=== PATIENT | female | born 1935 | race Caucasian/White ===

== ENCOUNTER 2016-09-04 12:54 | Emergency (ER) | payer MEDICARE ==
[~2016-09-04] VITALS: Ht 167.6 cm; Wt 63.6 kg
[~2016-09-04 12:54] MED LIST: AMLO10TA3 PO; ASPI81TA3 PO; ATOR20TA65 PO; BUSP10TA2 PO; CYCL10TA9 PO; DULO30CA50 PO; L.AC1CAP6 PO; LORA0.5T PO; MIRT15TA6 PO; NITR100 PO; ONDA-53 PO; OXYC1TAB24 PO; POLY17PO6 PO; PREG150C PO; [UNRECOGNIZED DRUG - CODE] PO
[2016-09-04 12:59] VITALS: BP 144/88; PULSE 89; RESP 20; O2SAT 93
[2016-09-04 13:30] LABS: BASOPHILS % (AUTO) 0.2 % (0-3); EOSINOPHILS % (AUTO) 4.8 % (0-5); MONOCYTES % (AUTO) 12.8 % (4-12); Mean Corpuscular Hemoglobin 31.2 pg (27.0-35.0); Mean Corpuscular Volume 96.1 fL (81-100); NEUTROPHILS % (AUTO) 47.3 % (40-74); Platelet Count 320 bil/L (150-400)
--- NOTE | 2016-09-04 13:54 | DRSVH ---
PROCEDURE: X-RAY CHEST ONE VIEW, PORTABLE ([id number]) INDICATIONS: 80 year-old female with chest pain. TECHNIQUE: One view of the chest was acquired. COMPARISON: [facility], CR, XR CHEST 1VW (PORTABLE), 07/18/2016, 20:19. [facility], CR, XR CHEST 1VW (PORTABLE), 06/17/2016, 1:30. [facility], CR, XR CHEST 1VW (PO RTABLE), 03/18/2016, 10:09. FINDINGS: Surgical changes and devices: Left proximal humeral fracture fixation hardware is again noted. Lungs and pleura: No pleural effusions or pneumothorax. Lungs are clear. Mediastinum: Mediastinal contours appear normal. Heart size is normal. There is aortic atheroscler osis. Bones and chest wall: No suspicious bony lesions. Overlying soft tissues appear unremarkable. IMPRESSION: No acute cardiopulmonary disease. Dictated by: Roni Coronado M.D. on 09/04/2016 at 13:52 Approved by: Roni Coronado M.D. on 09/04/2016 at 13:52
--- NOTE | 2016-09-04 14:00 | ED.REPORT ---
HPI-Chest Pain 40 and Over Date of Service Sep 04, 2016 ED Provider: Dhaval Cam MD Beronica Perea" is a very pleasant 80-year-old female with past medical history of hypertension, anxiety, sleep apnea and fibromyalgia presents to the ED secondary to chest pain 3 hours. Patient states that she recently went to urgent care on Sunday (2 days ago) and was diagnosed with influenza via nasal swab, prescribed antibiotics and cough suppressants and sent home. She states that she still maintains a productive cough yellow sputum and difficulty breathing and shortness of breath chills and fever at home. Her chest pain is located upper sternal area spanning from left to right midclavicular lines. This pain is reported to be sharp in nature and increases with deep inspiration and palpation. She endorses nausea but no vomiting, denies headache denies visual changes. Nursing Notes Stated Complaint: POSS FLU Chief Complaint: Chest Pain Nursing Notes Reviewed: Yes Allergies: Coded Allergies: No Known Allergies (Unverified , 03/18/16) Scheduled Amlodipine (Amlodipine) 10 Mg Tablet 10 MG PO DAILY Aspirin Chew (Aspirin Chew) 81 Mg Chew 81 MG PO DAILY Atorvastatin Calcium (Atorvastatin Calcium) 20 Mg Tablet 40 MG PO HS Buspirone (Buspirone) 10 Mg Tablet 10 MG PO BID Duloxetine (Duloxetine) 30 Mg Capsule.dr 30 MG PO DAILY L.acidoph & Paracasei,B.lactis (Probiotic) 10 Billion Cell Capsule 1 EACH PO DAILY Mirtazapine (Mirtazapine) 15 Mg Tablet 15 MG PO HS Nitrofurantoin Monohyd/M-Cryst (MacroBid) 100 Mg Capsule 100 MG PO BID Please take for one day in AM/PM on 03/13/2016 Pregabalin (Lyrica) 150 Mg Capsule 150 MG PO BID Scheduled PRN Cyclobenzaprine (Cyclobenzaprine) 10 Mg Tablet 10 MG PO TID PRN PRN Spasm Hyoscyamine Sulfate (Hyosyne) 0.125 Mg/1 Ml Drops 5 ML PO Q4H PRN PRN For GI Cramps Lorazepam (Lorazepam) 0.5 Mg Tablet 0.5 MG PO BID PRN PRN For Anxiety Ondansetron (Ondansetron) 4 Mg Tablet 4 MG PO TID PRN PRN For Nausea Polyethylene Glycol 3350 (Miralax) 17 Gm Powd.pack 17 GM PO DAILY PRN PRN For Constipation oxyCODONE-Acetaminophen 5-325 mg (oxyCODONE-Acetaminophen 5-325 mg) 1 Each Tablet 2 TAB PO TID PRN PRN For Pain General Time Seen by MD: 13:17 Chief Complaint Chest pain Hx Obtained From: Patient Arrived By: Walk-in Sudden in Onset?: No Past Medical History Past Medical History Fibromyalgia On chronic narcotics Reports: GERD, Hypertension, Transient ischemic attack Past Surgical History "Punctured bile duct" abscess requiring second surgery 30 years prior right knee replacement left shoulder replacement Reports: Appendectomy, Cholecystectomy Smoking History Never Smoker Social History Drug Use: Denies drug use Other Social History: Good social support, , Local resident Ambulatory Status Independent Review of Systems Constitutional: Reports: Chills, Fever Respiratory: Reports: Prod cough, yellow, Shortness of breath Cardiovascular: Reports: Chest pain, Denies: Palpitations, Syncope GI: Reports: Nausea, Denies: Abdominal pain, Constipation, Diarrhea, Vomiting Neurologic: Denies: Change LOC, Confusion, Dizziness, Headache, Lightheaded, Numbness Physical Exam General: No acute distress, well-developed, well-nourished, appropriately interactive HEENT: Normocephalic, atraumatic. External ears without defect. Pupils equal, round, and reactive to light and accommodation. Anicteric sclerae, moist conjunctivae, and no lid lag. Oropharynx free of erythema and cobble stoning with moist mucosa. Neck: Supple with full range of motion. No jugular venous distension. No lymphadenopathy or thyromegaly. Cardiovascular: Regular rate and rhythm with no murmurs, rubs, or gallops appreciated Pulmonary: Clear to auscultation bilaterally with no wheezes, or rhonchi. Normal respiratory effort with no use of accessory muscles. Slight right lower lobe crackles. Abdomen: Bowel tones present. Soft, nontender, nondistended. Extremities: No clubbing, cyanosis, edema, or lymphadenopathy appreciated. Skin: Normal temperature, turgor, and texture; no rash, ulcers, or subcutaneous nodules appreciated. Neurological: Cranial nerves grossly intact. Normal muscle strength, tone, and bulk. Reflexes, coordination, and sensory function within normal limits. No known gait impairment. Psychiatric: Normal mood and affect. Alert and oriented to person, place, and time. Initial Vital Signs Vital Signs (First) Date Time Temp Pulse Resp B/P Pulse Ox O2 Delivery O2 Flow Rate FiO2 09/04/16 12:59 36.1 89 20 144/88 93 Room Air Interpretation & Diagnostics Lab Results Interpretation Result Diagram: 09/04/16 1310 09/04/16 1310 Test 09/04/16 13:10 White Blood Count 4.4th/mm3 (3.8-10.1) Red Blood Count 4.39mil/mm3 (3.90-5.20) Hemoglobin 13.7g/dL (12.0-15.6) Hematocrit 42.2% (35.0-46.0) Mean Corpuscular Volume 96.1fL (81-100) Mean Corpuscular Hemoglobin 31.2pg (27.0-35.0) Mean Corpuscular Hemoglobin Concent 32.5% (32.0-37.0) Red Cell Distribution Width 13.7% (12.3-15.4) Platelet Count 320bil/L (150-400) Neutrophils (%) (Auto) 47.3% (40-74) Lymphocytes (%) (Auto) 34.9% (14-46) Monocytes (%) (Auto) 12.8% (4-12) Eosinophils (%) (Auto) 4.8% (0-5) Basophils (%) (Auto) 0.2% (0-3) Sodium Level 140mEq/L (134-144) Potassium Level 4.2mEq/L (3.5-5.2) Chloride Level 104mEq/L (97-108) Carbon Dioxide Level 22mmol/L (18-29) Blood Urea Nitrogen 14mg/dL (8-27) Creatinine 0.60mg/dL (0.57-1.00) Estimat Glomerular Filtration Rate 137mL/min (>59) Glucose Level 105mg/dL (60-99) Calcium Level 9.2mg/dL (8.5-10.1) Magnesium Level 1.9mg/dL (1.6-2.6) Total Bilirubin 0.2mg/dL (0.0-1.2) Aspartate Amino Transf (AST/SGOT) 17U/L (0-50) Alanine Aminotransferase (ALT/SGPT) 13U/L (0-32) Alkaline Phosphatase 71U/L (25-165) Troponin T < 0.010ug/L (0.0-0.011) Total Protein 7.4g/dL (6.4-8.4) Albumin 4.0g/dL (3.4-5.0) Hold Baxter Top Tube Received (Received) ECG Interpretation ECG Interpretation: EKG shows sinus rhythm with prolonged QT interval. Re-Eval/Medical Decision Med Decision/Clinical Course EKG showed sinus rhythm with QT prolongation. CBC CMP unremarkable. Chest x-ray also unremarkable. Patient is most likely suffering from costochondritis secondary to coughing episodes and sequelae of current respiratory infection. Seen in urgent care 3 days ago diagnosed with respiratory virus and given antibiotics. Patient counseled to continue taking supportive treatment and prescribed medication. Patient discharged to home in stable condition encouraged to follow-up with primary care provider. Counseled Regarding: Diagnosis, Lab results, When/why to return to ED Discharge & Departure Primary Impression: Musculoskeletal chest pain Disposition: Home Discharge Condition All VS Reviewed: Yes Condition: Stable Additional Instructions: Your chest pain is most likely due to a condition called costochondritis. This is brought on by your recent illness and subsequent coughing. Please continue to take the medications prescribed to you by the urgent care doctor. If your symptoms do not improve or worsen or if you develope fevers nausea vomiting, cough with blood or nausea vomiting please return to the ED for additional evaluation. Referrals: OTHER,PHYSICIAN (PCP) Attending Statement The patient was seen and examined together with Dr. Francis on 09/04/15 and I agree with the history, exam and plan as outlined in the note above. WILVER FRANCIS DO Sep 04, 2016 14:00 Dhaval Cam MD Sep 04, 2016 14:55
[2016-09-04 14:04] LABS: Magnesium 1.9 mg/dL (1.6-2.6)
[2016-09-04 14:06] LABS: TROPONIN T < 0.010 ug/L (0.0-0.011)
[2016-09-04 14:37] VITALS: BP 135/63; PULSE 77; RESP 13; O2SAT 100
== END 2016-09-04 14:15 | disposition home or self-care (01) ==
LOC: SED 12:54
DX: R07.89 Other chest pain (principal); K21.9 Gastro-esophageal reflux disease without esophagitis; I10 Essential (primary) hypertension; Z86.73 Personal history of transient ischemic attack (TIA), and cerebral infarction without residual deficits; Z79.82 Long term (current) use of aspirin

== ENCOUNTER 2016-09-16 17:46 | Observation (INO) | payer MEDICARE ==
[~2016-09-16] VITALS: Ht 165.1 cm; Wt 66.8 kg
[2016-09-16] VITALS (7 sets, daily range): BP systolic 149–176; BP diastolic 67–123; PULSE 81–93; RESP 10–20; O2SAT 94–98
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
[2016-09-16 18:54] LABS: BASOPHILS % (AUTO) 0.5 % (0-3); EOSINOPHILS % (AUTO) 3.9 % (0-5); MONOCYTES % (AUTO) 9.2 % (4-12); Mean Corpuscular Hemoglobin 31.3 pg (27.0-35.0); NEUTROPHILS % (AUTO) 53.3 % (40-74); Platelet Count 364 bil/L (150-400)
--- NOTE | 2016-09-16 19:13 | DRSVH ---
PROCEDURE: X-RAY CHEST ONE VIEW, PORTABLE ([id number]) INDICATIONS: chest pain TECHNIQUE: One view of the chest was acquired. COMPARISON: [facility], CT, CT ANGIO CHEST PE, 03/18/2016, 10:42. [facility] , CR, XR CHEST 1VW (PORTABLE), 03/10/2016, 11:54. [facility], CR, XR CHEST 1VW (PORTABLE) , 06/17/2016, 1:30. [facility], CR, XR CHEST 1VW (PORTABLE), 09/04/2016, 13:31. FINDINGS: Surgical changes and devices: There are postsurgical changes within the proximal left humerus again n oted. Lungs and pleura: There are small chronic bilateral pleural effusions redemonstrated. No acute cons olidation. Mediastinum: Mediastinal contours appear unchanged. Heart size is normal. Bones and chest wall: No suspicious bony lesions. Overlying soft tissues appear unremarkable. IMPRESSION: 1. Small chronic bilateral pleural effusions appear unchanged. No acute consolidation. Dictated by: Hernan Ramirez M.D. on 09/16/2016 at 19:12 Approved by: Hernan Ramirez M.D. on 09/16/2016 at 19:12
[2016-09-16] MEDS: fentaNYL-PF 50 mCg/mL 2 mL Inj IVPUSH PRN ×2 (19:15→19:35)
[2016-09-16 19:29] LABS: Magnesium 1.9 mg/dL (1.6-2.6)
[2016-09-16 19:31] LABS: TROPONIN T < 0.010 ug/L (0.0-0.011)
[2016-09-16] MEDS: HYDROmorphone 0.5 mg/0.5 mL iSecure Syringe IVPUSH PRN ×2 (20:39→20:54)
[2016-09-16] MEDS ORDERED: Alum-Mag Hydrox-Simeth 30 mL Suspension PO PRN (21:00)
[2016-09-16] MEDS ORDERED: Ondansetron 2 mg/mL 2 mL Inj IVPUSH PRN (21:00)
--- NOTE | 2016-09-16 22:26 | PCM.HPMED ---
Subjective Date of Service Sep 16, 2016 Primary Provider: Admitting Physician: Olaf Rosales MD Primary Care Physician: Other,Physician Attending Physician: Olaf Rosales MD Chief Complaint: Chest pain History of Present Illness: Patient is an 80-year-old female with hypertension, GERD, fibromyalgia, anxiety and depression presenting with left sided chest pain. The patient reports the onset of the chest pain about 2 weeks ago. Note the patient has previously been evaluated in the ED a couple of times and at Urgent Care a couple of times for chest pain. The patient was seen on 09/04/2016 in [facility] ED and at that time was diagnosed with costochondritis. She was also recently seen at Urgent Care on for the chest pain where she had an unremarkable EKG; the chest pain at that time was also attributed to costochondritis. Patient's reports the patient had onset of the chest pain this afternoon. She was given oxycodone, acetaminophen and Aleve without relief, which prompted her to be brought to [facility] ED for further evaluation. Patient reports the pain is located just left of her sternum and describes it as sharp, sore and constant. She does not recall an inciting event to the pain. Patient denies any pain with exertion, diaphoresis or radiation. In the ED, the patient received SL nitro, fentanyl IV 50mcg x2 and Dilaudid 0.5mg, which helped with the pain. Patient reports being "comfortable" at time of visit. The patient reports some constipation but otherwise denies shortness of breath, fever, chills, cough, nausea, emesis, lightheadedness, dizziness, dysuria, diarrhea. Patient's reports the patient had a pharmacological stress test at [facility] in July; however, she was unable to complete the study due to shoulder pain. In the ED, vitals: temp 36.4, HR 83, RR 18 satting 96% on room air, BP 149/123. Notable labs: Troponin<0.010, D-dimer <0.5. Chest x-ray shows small chronic bilateral pleural effusions that appear unchanged. Review of Systems: A comprehensive review of systems was conducted with the patient and found to be negative except as above in the History of Present Illness. Allergies Coded Allergies: No Known Allergies (Unverified , 03/18/16) Home Medications Amlodipine 10mg PO daily Buspirone 5mg PO daily Mirtazapine 15mg PO QHS Zofran 4mg PO daily Omeprazole 20mg PO BID Oxycodone 5mg PO QID PRN Probiotic PMH Fibromyalgia Hypertension Depression GERD Dementia History of TIA . Surgical History Right knee replacement Left shoulder replacement Appendectomy Cholecystectomy Tonsillectomy Family History Mother CVA in 80s Father unknown Social History Occupation: Retired Hx Alcohol Use: Yes (Sparingly) Hx Substance Use: No Hx Tobacco Use: No Smoking Status: Never Smoker Living Arrangement: with Family Exam Vital Signs Vital Sign - Last Date Time Temp Pulse Resp B/P Pulse Ox O2 Delivery O2 Flow Rate FiO2 09/16/16 20:18 83 18 149/123 96 Room Air 09/16/16 17:49 36.4 Exam General: Patient sitting upright in bed, No acute distress, well-developed, well -nourished, appropriately interactive HEENT: Normocephalic, atraumatic. External ears without defect. Pupils equal, round, and reactive to light. Anicteric sclerae, moist conjunctivae, and no lid lag. Oropharynx free of erythema and cobble stoning with moist mucosa. Neck: Supple. No lymphadenopathy or thyromegaly. Cardiovascular: Regular rate and rhythm with no murmurs, rubs, or gallops appreciated Pulmonary: Few crackles at bases otherwise no wheezes, or rhonchi. Normal respiratory effort with no use of accessory muscles. Abdomen: Bowel tones present. Soft, nontender, nondistended. Extremities: Mild lower extremity pitting edema above ankles. Musculoskeletal: Sternal tenderness to palpation Skin: Normal temperature, turgor, and texture; no rash, ulcers, or subcutaneous nodules appreciated. Neurological: Cranial nerves grossly intact. Psychiatric: Normal mood and affect. Lab and Diagnostics Result Diagram: 09/16/16183309/16/161833 X-Rays, CTs and MRIs Date of Service: 09/16/161834 PROCEDURE: X-RAY CHEST ONE VIEW, PORTABLE ([id number]) INDICATIONS: chest pain TECHNIQUE: One view of the chest was acquired. COMPARISON: [facility], CT, CT ANGIO CHEST PE, 03/18/2016, 10:42. [facility], CR, XR CHEST 1VW (PORTABLE), 03/10/2016, 11:54. [facility], CR, XR CHEST 1VW (PORTABLE), 06/17/2016, 1:30. [facility], CR, XR CHEST 1VW (PORTABLE), 09/04/2016, 13:31. FINDINGS: Surgical changes and devices: There are postsurgical changes within the proximal left humerus again noted. Lungs and pleura: There are small chronic bilateral pleural effusions redemonstrated. No acute consolidation. Mediastinum: Mediastinal contours appear unchanged. Heart size is normal. Bones and chest wall: No suspicious bony lesions. Overlying soft tissues appear unremarkable. IMPRESSION: 1. Small chronic bilateral pleural effusions appear unchanged. No acute consolidation. Dictated by: Hernan Ramirez M.D. on 09/16/2016 at 19:12 Approved by: Hernan Ramirez M.D. on 09/16/2016 at 19:12 Assessment & Plan Patient is an 80-year-old female with hypertension, GERD, fibromyalgia, anxiety and depression presenting with left sided chest pain. 1. Acute chest pain. Present on admission -Rule out ACS. Pain possibly secondary to unstable angina, musculoskeletal, fibromyalgia. Likely musculoskeletal given sternal tenderness to palpation on physical examination -Unable to complete pharmacological stress test at [facility] in July 2016 due to inability to tolerate left shoulder positioning -EKG shows NSR HR 79, no acute ST-changes. QTc 544. -Echocardiogram from 03/2016 was poor quality with limited LV, RV, and valve visualization but otherwise grossly normal left ventricular size and systolic function. -Telemetry -Initial troponin <0.010. Trend troponin -SL nitroglycerin and morphine PRN -Exercise stress test 2. Prolonged QTc, chronic. Present on admission -QTc 544. In July QTc 560 -Possibly secondary to medications as patient is on Zofran daily and just completed azithromycin -Avoid QT prolonging medications 3. Hypertension, chronic. Present on admission -Continue home amlodipine 4. Chronic GERD. Present on admission -Continue PPI 5. Anxiety and depression, chronic. Present on admission -Continue home antidepressants Patient Status: Patient is admitted under observation status with expected length of stay less than 2 midnights due to risk of adverse event and complexity of treatment plan. VTE Prophylaxis: Sub-Q Heparin (Unfractionated) Resuscitation Status: DNR/DNI:Do Not Resuscitate/Intubate Attending Statement The patient was seen and examined together with Dr. Olivarez on 09/16/16 and I agree with the history, exam and plan as outlined in the note above. Timothy Olivarez DO Sep 16, 2016 21:58 Olaf Rosales MD Sep 17, 2016 02:25
[2016-09-16] MEDS ORDERED: QUE9 PO (23:11)
[2016-09-16] MEDS ORDERED: METH454P2 PO (23:11)
[2016-09-16] MEDS ORDERED: IPRA4AER IH (23:11)
[2016-09-16] MEDS ORDERED: OMEP20CA11 PO (23:11)
[2016-09-16] MEDS: Heparin 5,000 Unit/mL Inj SUBQ SCH (23:35)
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
[2016-09-17] VITALS (7 sets, daily range): BP systolic 123–187; BP diastolic 72–94; PULSE 78–100; RESP 18; O2SAT 95–98
[2016-09-17 00:40] LABS: APPEARANCE,URINE CLEAR (CLEAR,HAZY); COLOR,URINE YELLOW (YELLOW); OCCULT BLOOD,URINE NEGATIVE (NEGATIVE); UROBILINOGEN,URINE NORMAL (NORMAL)
[2016-09-17] MEDS ORDERED: HYDROmorphone 0.5 mg/0.5 mL iSecure Syringe IVPUSH ONE (01:20)
[2016-09-17] MEDS ORDERED: Ketorolac 15 mg/mL Inj IVPUSH ONE (03:30)
[2016-09-17] MEDS: HYDROmorphone 0.5 mg/0.5 mL iSecure Syringe IVPUSH PRN ×3 (03:46→19:40)
[2016-09-17] MEDS: LORazepam 0.5 mg Tablet PO PRN ×2 (05:56→19:40)
[2016-09-17] MEDS ORDERED: HYDROmorphone 0.5 mg/0.5 mL iSecure Syringe IVPUSH PRN ×2 (06:00)
[2016-09-17] MEDS: Pantoprazole 40 mg ER24 Tablet PO SCH ×2 (08:46→16:41)
[2016-09-17] MEDS: Heparin 5,000 Unit/mL Inj SUBQ SCH ×2 (08:49→16:41)
[2016-09-17] MEDS: BusPIRone 15 mg Dividose Tablet PO SCH ×2 (08:49→19:40)
[2016-09-17] MEDS ORDERED: 0.9% Sodium Chloride 250 ML ONE (09:29)
[2016-09-17] MEDS: cefTRIAXone Inj 2,000 MG in IV Premix 1 EACH IV SCH (09:34)
[2016-09-17] MEDS: oxyCODONE-Acetamin 5-325 mg Tablet PO PRN (11:52)
--- NOTE | 2016-09-17 12:00 | NUR ---
Observation information provided and explained.
--- NOTE | 2016-09-17 14:55 | NUR ---
Social Work-initial assessment/readiness for discharge: Data:See initial assessment. Pt is a 80 y/o female who was admitted on 09/16/16 for chest pain per H&P. Pt's insurance is [employer] and PCP is Jesusita at [facility]. EMR Reviewed. SW met with pt and at bedside to discuss discharge planning, SW role explained. Pt is alert and oriented x3. Pt and reside in single level home where pt remains independent with ADLs. Pt does not drive and does not use any DME. Pt has no HH or SNF history. Pt has no senior living care or VA benefits. SW discussed DPOA/advanced directive, confirms they have completed this, SW encouraged them to bring a copy into the hospital.Per RN notes, pt has been up independent in he room. Pt's to provide transport home. SW provided phone number and plan on white board in room.No anticipated discharge needs. SW will continue to follow if needs arise. Assessment:Pt who is independent at baseline. Plan:Pt to discharge home when medically stable via POV. No anticipated discharge needs. SW will continue to follow if needs arise. KESHA Logan Addendum: 09/17/16 at 1501 by LJ ATKINSON Amended: Links added.
--- NOTE | 2016-09-17 17:42 | NUR ---
Chest Pain Pt reports diffuse peristernal chest pain upon palpation, only reports pain when asked if has pain. When asked about pain she rubs her chest and states it hurts when she presses. Request for PRN pain medication x1 this morning, received 1mg IV dilaudid, no subsequent c/o pain. Received pain medication prophylactically for chronic L shoulder pain to help pt tolerate cardiac stress test this afternoon.
[2016-09-17] MEDS ORDERED: Ketorolac 15 mg/mL Inj IVPUSH PRN (20:55)
[2016-09-17] MEDS ORDERED: diphenhydrAMINE 25 mg Capsule PO SCH (21:00)
--- NOTE | 2016-09-17 23:00 | PCM.PNMED ---
Subjective Date of Service Sep 17, 2016 Subjective The patient continues to complain of chest pain across her chest. Seems to be a little worse this evening when she was stressed out about not being able to go home. She has no nausea. She has no diaphoresis. She has no other new complaints. Exam Vital Signs Vital Sign - Last Date Time Temp Pulse Resp B/P Pulse Ox O2 Delivery O2 Flow Rate FiO2 09/17/16 21:35 36.3 100 18 164/87 98 Room Air Intake and Output 09/16/16 09/16/16 09/17/16 Cumulative From/Thru 15:00 23:00 07:00 09/16/16 17:49 - 09/17/16 05:54 Intake Total 0 ml 0 ml Output Total 700 ml 700 ml Balance -700 ml -700 ml Intake Oral 0 ml 0 ml Output Urine Total 700 ml 700 ml Exam General: The patient is comfortable in a bedside chair. However she often is seen rubbing her chest, as if to alleviate her discomfort. HEENT: Head is atraumatic normocephalic. Eyes: Pupils are equally round and reactive to light and accommodation. Extraocular muscles are intact. Sclera are white anicteric. Subconjunctival mucosa is pink. Ears and nose are unremarkable. Oropharynx: There is no mucosal lesions, there is no thrush, there is no pharyngitis. Neck: Is supple, there are no nodes, or masses or tenderness. Chest: Is clear to auscultation and percussion. There are no rales, rhonchi, wheezes or rubs. Heart: Rate, rhythm is regular. There is no murmur, rub or gallop. Chest wall is quite tender to palpation just left of the sternal midline. Abdomen: Good bowel sounds are present. Abdomen is soft, nontender, no organomegaly or masses were appreciated. Extremities: Are symmetrical and well perfused. There is no edema, there is no cellulitis, no rash. Neurologic: There are no focal neurological deficits. Cranial nerves II through XII are intact. There are no sensory or motor deficits. Psychiatric: Patients mood is calm and shows no sign of agitation. She is somewhat tearful when she could go home this evening. Genital: Deferred Rectal: Deferred Lab and Diagnostics Urine culture is pending Result Diagram: 09/16/16183309/16/161833 X-Rays, CTs and MRIs Date of Service: 09/16/16 183 PROCEDURE: X-RAY CHEST ONE VIEW, PORTABLE ([id number]) INDICATIONS: chest pain TECHNIQUE: One view of the chest was acquired. COMPARISON: [facility], CT, CT ANGIO CHEST PE, 03/18/2016, 10:42. [facility], CR, XR CHEST 1VW (PORTABLE), 03/10/2016, 11:54. [facility], CR, XR CHEST 1VW (PORTABLE), 06/17/2016, 1:30. [facility], CR, XR CHEST 1VW (PORTABLE), 09/04/2016, 13:31. FINDINGS: Surgical changes and devices: There are postsurgical changes within the proximal left humerus again noted. Lungs and pleura: There are small chronic bilateral pleural effusions redemonstrated. No acute consolidation. Mediastinum: Mediastinal contours appear unchanged. Heart size is normal. Bones and chest wall: No suspicious bony lesions. Overlying soft tissues appear unremarkable. IMPRESSION: 1. Small chronic bilateral pleural effusions appear unchanged. No acute consolidation. Dictated by: Hernan Ramirez M.D. on 09/16/2016 at 19:12 Approved by: Hernan Ramirez M.D. on 09/16/2016 at 19:12 Cardiac Echo Impressions Echocardiogram Report Name: JOSE LANZA JStudy Date : 03/12/2016 Philippeig ht: 67 in Hospital Exam Location: [facility] ht: 148 lb Gender: Female BSA: 1.8 m2 : 1935 Age: 80 yrs BP: 111/71 mmHg Reason For Study: CVA History: HTN Ordering Physician: [facility] Performed By: Latisha Hoover Referring Physician: DR. FERNÁNDEZ, [facility] Interpretation Summary Poor quality images limit LV, RV, and valve visualization. Definity contrast helps in left ventricular assessment. 1) Grossly normal left ventricular size and systolic function. 2) No thrombus in the left ventricle. 3) Moderate tricuspid regurgitation. 4) No prior Echo available for comparison. Assessment & Plan Patient is an 80-year-old female with hypertension, GERD, fibromyalgia, anxiety and depression presenting with left sided chest pain. 1. Acute chest pain. Present on admission -ACS has been ruled out as troponins are negative. Pain possibly secondary to unstable angina, musculoskeletal, fibromyalgia. Likely musculoskeletal given sternal tenderness to palpation on physical examination. This would be consistent with a diagnosis of Tietze's syndrome or costochondritis. -Unable to complete pharmacological stress test at [facility] in July 2016 due to inability to tolerate left shoulder positioning -EKG shows NSR HR 79, no acute ST-changes. QTc 544. He does however have flattened T waves in most inferior lateral leads. -Echocardiogram from 03/2016 was poor quality with limited LV, RV, and valve visualization but otherwise grossly normal left ventricular size and systolic function. -Telemetry -Initial troponin <0.010. Trend troponin -SL nitroglycerin and morphine PRN -Exercise stress test could not be performed this weekend. Therefore Lexiscan was performed with premedication with Percocet and Toradol. This was so the patient could tolerate this study as she has significant shoulder pain when lifting her left upper extremity. She tolerated the procedure well. However during the procedure patient developed mild chest discomfort and nausea with Lexiscan infusion. However there were no associated EKG changes. Symptoms also promptly were relieved with Aminophyllin. On her stress test she had increased uptake in the septum more so than the lateral wall which may be a normal variant however Dr. Cantu felt that it was necessary to rule out lateral wall ischemia. Therefore, patient needed to return in the morning for resting images. Of note patient was noted to have normal LV function and no focal wall motion abnormalities on stress images. 2. Prolonged QTc, chronic. Present on admission -QTc 544. In July QTc 560 -Possibly secondary to medications as patient is on Zofran daily and just completed azithromycin -Avoid QT prolonging medications 3. Hypertension, chronic. Present on admission -Continue home amlodipine 4. Chronic GERD. Present on admission -Continue PPI 5. Anxiety and depression, chronic. Present on admission -Continue home antidepressants 6. Urinary tract infection - Start Rocephin 2 g IV every 24 hours - Check urine culture which is pending 7. Diarrhea is taking Imodium at home and was ready to give one to her here until the nurse Blanca stopped him. - Check stool for C. difficile if patient has a loose stool. Then we will be able to safely give Imodium to the patient. Patient Status: Patient is to stay overnight for resting nuclear images in a.m. If these are negative patient will likely be discharged home in fair positive for, or are indicative of ischemic disease, patient may need cardiac catheterization. Pain Evaluation: Adequate Pain Control VTE Prophylaxis: Sub-Q Heparin (Unfractionated) VTE Mechanical Devices: Intermittant Pneumatic CD Resuscitation Status: DNR/DNI:Do Not Resuscitate/Intubate Rodriguez Navarrete MD Sep 17, 2016 23:00
[2016-09-18 00:11] VITALS: PULSE 96
[2016-09-18] MEDS: Heparin 5,000 Unit/mL Inj SUBQ SCH ×2 (00:30→07:52)
[2016-09-18] MEDS: oxyCODONE-Acetamin 5-325 mg Tablet PO PRN (06:32)
[2016-09-18 06:45] VITALS: BP 159/90; PULSE 96; RESP 18; O2SAT 98
[2016-09-18 07:14] LABS: BASOPHILS % (AUTO) 0.3 % (0-3); EOSINOPHILS % (AUTO) 4.7 % (0-5); MONOCYTES % (AUTO) 10.7 % (4-12); Mean Corpuscular Hemoglobin 31.2 pg (27.0-35.0); Platelet Count 354 bil/L (150-400)
[2016-09-18 07:30] LABS: Phosphorus 4.3 mg/dL (2.5-4.9)
[2016-09-18] MEDS: BusPIRone 15 mg Dividose Tablet PO SCH (07:51)
[2016-09-18] MEDS: cefTRIAXone Inj 2,000 MG in IV Premix 1 EACH IV SCH (07:51)
[2016-09-18] MEDS: Pantoprazole 40 mg ER24 Tablet PO SCH (07:52)
[2016-09-18 08:45] LABS: ERYTHROCYTE SEDIMENTATION RATE 18 mm/hr (0-40)
[2016-09-18 11:10] VITALS: BP 123/75; PULSE 82; RESP 18; O2SAT 98
[2016-09-18 11:19] VITALS: PULSE 84
[2016-09-18] MEDS: HYDROmorphone 0.5 mg/0.5 mL iSecure Syringe IVPUSH PRN (12:08)
--- NOTE | 2016-09-18 15:03 | DRSVH ---
PROCEDURE: 2 DAY PHARMACOLOGICAL STRESS TEST Rest and pharmacological stress myocardial perfusion SPECT with gated imaging and ejection fraction RADIOPHARMACEUTICAL: 19.6 mCi Tc-99m tetrafosmin IV at rest and 21.8 mCi Tc-99m tetrafosmin IV at pea k effect of pharmacological stress. A [id number] was performed. INDICATIONS: 80 year-old female with history of hypertension and family history of coronary artery di sease presenting for evaluation of chest pain. TECHNIQUE: Radiopharmaceutical was injected at peak stress test, and also at rest. SPECT images wer e obtained. SPECT myocardial perfusion images were displayed in short axis, horizontal long axis, an d vertical long axis views. Gated images were reviewed using [employer] software. COMPARISON: None. CARDIAC STRESS: A pharmacologic stress test was performed under the supervision of an attending staff, using an infus ion of Dianpingiscan. Hemodynamic data: There is appropriate blood pressure and heart rate response to pharmacologic stres s. Symptoms: The patient reported mild nausea and chest heaviness which improved with Aminophyllin. Aminophylline: 100 mg IV EKG: No diagnostic changes of ischemia; no ectopy. FINDINGS: Raw data: There is good myocardial uptake of radiotracer. No significant motion artifacts. Left ventricle function: Gated images demonstrate normal left ventricular wall thickening. No segme ntal wall motion abnormalities. Left ventricle resting end diastolic volume is 46 mL. Left ventricl e stress ejection fraction is 86%; normal range is above 45%. Myocardial perfusion: There is normal distribution of activity in the right and left ventricular tracy cardium. No definite fixed or reversible perfusion defects. IMPRESSION: 1. Normal myocardial perfusion images without evidence of ischemia or infarct. 2. Normal left ventricular ejection fraction without segmental wall motion abnormalities. 3. No diagnostic EKG changes of ischemia following pharmacologic stress. Findings discussed with Dr. Navarrete on 09/18/16 at 3 PM. PQRS ATTESTATIONS: Measure 322 - Is this imaging test primarily performed on a low-risk surgery patient for preoperative evaluation within 30 days preceding their low-risk non-cardiac surgery? Low-risk surgery is defined as cardiac or myocardial infarction less than 1%, including (but not limited to) endoscopic pr ocedures, superficial procedures, cataract surgery, and excisional breast surgery: Answer: No Measure 323 - Is this imaging test performed primarily for the monitoring of an asymptomatic patient who had percutaneous coronary intervention on the visit date or within 2 years of the visit date? An swer: No Measure 324 - Is this imaging test performed primarily for the initial detection and risk assessment on an asymptomatic, low coronary heart disease patient? Low CHD risk definition = clinicians should consider the maximum number of available patient factors used to estimate risk based on Mathis (A TP III criteria), typically age, gender, diabetes, smoking status, and use of blood pressure medicati on, and integrate age appropriate estimates for missing elements, such as LDL or standard blood press ure. Answer: No Dictated by: Hernan Ramirez M.D. on 09/18/2016 at 15:02 Approved by: Hernan Ramirez M.D. on 09/18/2016 at 15:02
--- NOTE | 2016-09-18 15:12 | NUR ---
told doctor and nurse he was going to leave at 2 pm today. At 2 pm patient had just gotten back to room from stress test. Patient did not have discharge orders yet and doctor was awaiting radiology to read report. around 3pm patient took patient and walked in hallway through the double doors into the main entrance of the 3rd floor. Nurse walked out after them and asked them if they were leaving and said yes. Nurse told the IV needed to come out first and that they didn't have discharge orders yet. was informed he could leave AMA and he stated that is what they wanted to do. Patient walked with nurse to room. IV removed and MD came in to talk with patient about results of test. Patient was informed they were going to be discharged shortly and patient agreed and to wait.
--- NOTE | 2016-09-18 15:18 | PCM.DIMED ---
Discharge Instructions Date of Service Sep 18, 2016 Dates of Hospitalization Sep 16, 2016 at 21:28 Discharge Diagnosis Discharge Diagnosis Costochondritis with Chest Pain Diet Heart Healthy Activity No restrictions (May resume usual activity gradually as tolerated) Call your provider Fever or Chills, Shortness of breath, Bleeding, Chest pain, Vomitting, Excessive diarrhea, Weakness (unilateral), Other Patient Instructions Follow-up with PCP in: 2 weeks Rodriguez Navarrete MD Sep 18, 2016 15:18
[2016-09-18] MEDS ORDERED: IBUP400T22 PO (15:23)
[2016-09-18] MEDS ORDERED: CEFD300C3 PO (15:23)
--- NOTE | 2016-09-18 15:34 | NUR ---
Social Work-discharge: data:EMR Reviewed. Pt is on day 2 of hospitalization for chest pain per H&P. Pt is medically stable to discharge home today. Pt has been up independent in her room. No discharge needs identified. All updated and agreeable to plan. Assessment:Pt who is independent at baseline. Plan:Pt to discharge home today via POV. No discharge needs identified. All updated and agreeable to plan. KESHA Logan
--- NOTE | 2016-09-19 00:33 | PCM.DC.MED ---
Discharge Summary Date of Service Sep 18, 2016 Dates of Hospitalization Date of Hospital Admission Sep 16, 2016 at 21:28 Date of Discharge: Sep 18, 2016 Providers: Admitting Physician: Olaf Rosales MD Primary Care Physician: Other,Physician Attending Physician: Olaf Rosales MD Diagnosis at Time of Discharge Diagnosis at Time of Discharge Costochondritis with Chest Pain Procedures XRay, CTs & MRIs Date of Service: 09/16/16 1835 PROCEDURE: X-RAY CHEST ONE VIEW, PORTABLE ([id number]) INDICATIONS: chest pain TECHNIQUE: One view of the chest was acquired. COMPARISON: [facility], CT, CT ANGIO CHEST PE, 03/18/2016, 10:42. [facility], CR, XR CHEST 1VW (PORTABLE), 03/10/2016, 11:54. [facility], CR, XR CHEST 1VW (PORTABLE), 06/17/2016, 1:30. [facility], CR, XR CHEST 1VW (PORTABLE), 09/04/2016, 13:31. FINDINGS: Surgical changes and devices: There are postsurgical changes within the proximal left humerus again noted. Lungs and pleura: There are small chronic bilateral pleural effusions redemonstrated. No acute consolidation. Mediastinum: Mediastinal contours appear unchanged. Heart size is normal. Bones and chest wall: No suspicious bony lesions. Overlying soft tissues appear unremarkable. IMPRESSION: 1. Small chronic bilateral pleural effusions appear unchanged. No acute consolidation. Dictated by: Hernan Ramirez M.D. on 09/16/2016 at 19:12 Approved by: Hernan Ramirez M.D. on 09/16/2016 at 19:12 Cardiac Echo Impression Echocardiogram Report Name: JOSE LANZA JStudy Date : 03/12/2016 [place] ht: 67 in Hospital Exam Location: [facility] ht: 148 lb Gender: Female BSA: 1.8 m2 : 1935 Age: 80 yrs BP: 111/71 mmHg Reason For Study: CVA History: HTN Ordering Physician: [facility] Performed By: Latisha Hoover Referring Physician: DR. FERNÁNDEZ, [facility] Interpretation Summary Poor quality images limit LV, RV, and valve visualization. Definity contrast helps in left ventricular assessment. 1) Grossly normal left ventricular size and systolic function. 2) No thrombus in the left ventricle. 3) Moderate tricuspid regurgitation. 4) No prior Echo available for comparison. Brief History Patient is an 80-year-old female with hypertension, GERD, fibromyalgia, anxiety and depression presenting with left sided chest pain. The patient reports the onset of the chest pain about 2 weeks ago. Note the patient has previously been evaluated in the ED a couple of times and at Urgent Care a couple of times for chest pain. The patient was seen on 09/04/2016 in [facility] ED and at that time was diagnosed with costochondritis. She was also recently seen at Urgent Care on for the chest pain where she had an unremarkable EKG; the chest pain at that time was also attributed to costochondritis. Patient's reports the patient had onset of the chest pain this afternoon. She was given oxycodone, acetaminophen and Aleve without relief, which prompted her to be brought to [facility] ED for further evaluation. Patient reports the pain is located just left of her sternum and describes it as sharp, sore and constant. She does not recall an inciting event to the pain. Patient denies any pain with exertion, diaphoresis or radiation. In the ED, the patient received SL nitro, fentanyl IV 50mcg x2 and Dilaudid 0.5mg, which helped with the pain. Patient reports being "comfortable" at time of visit. The patient reports some constipation but otherwise denies shortness of breath, fever, chills, cough, nausea, emesis, lightheadedness, dizziness, dysuria, diarrhea. Patient's reports the patient had a pharmacological stress test at [facility] in July; however, she was unable to complete the study due to shoulder pain. In the ED, vitals: temp 36.4, HR 83, RR 18 satting 96% on room air, BP 149/123. Notable labs: Troponin<0.010, D-dimer <0.5. Chest x-ray shows small chronic bilateral pleural effusions that appear unchanged. Patient was at him under observation to the hospital service at [facility] for further evaluation and treatment recommendations. Hospital Course Patient is an 80-year-old female with hypertension, GERD, fibromyalgia, anxiety and depression presenting with left sided chest pain. 1. Acute chest pain. Present on admission -ACS has been ruled out as troponins are negative. Pain possibly secondary to unstable angina, musculoskeletal, fibromyalgia. Likely musculoskeletal given sternal tenderness to palpation on physical examination. This would be consistent with a diagnosis of Tietze's syndrome or costochondritis. -Unable to complete pharmacological stress test at [facility] in July 2016 due to inability to tolerate left shoulder positioning -EKG shows NSR HR 79, no acute ST-changes. QTc 544. He does however have flattened T waves in most inferior lateral leads. -Echocardiogram from 03/2016 was poor quality with limited LV, RV, and valve visualization but otherwise grossly normal left ventricular size and systolic function. -Telemetry -Initial troponin <0.010. Trend troponin -SL nitroglycerin and morphine PRN -Exercise stress test could not be performed this weekend. Therefore Lexiscan was performed with premedication with Percocet and Toradol. This was so the patient could tolerate this study as she has significant shoulder pain when lifting her left upper extremity. She tolerated the procedure well. However during the procedure patient developed mild chest discomfort and nausea with Lexiscan infusion. However there were no associated EKG changes. Symptoms also promptly were relieved with Aminophyllin. On her stress test she had increased uptake in the septum more so than the lateral wall which may be a normal variant however Dr. Cantu felt that it was necessary to rule out lateral wall ischemia. Therefore, patient needed to return in the morning for resting images. Of note patient was noted to have normal LV function and no focal wall motion abnormalities on stress images. 2. Prolonged QTc, chronic. Present on admission -QTc 544. In July QTc 560 -Possibly secondary to medications as patient is on Zofran daily and just completed azithromycin -Avoid QT prolonging medications 3. Hypertension, chronic. Present on admission -Continue home amlodipine 4. Chronic GERD. Present on admission -Continue PPI 5. Anxiety and depression, chronic. Present on admission -Continue home antidepressants 6. Urinary tract infection - Start Rocephin 2 g IV every 24 hours - Check urine culture which is pending 7. Diarrhea is taking Imodium at home and was ready to give one to her here until the nurse Blanca stopped him. - Check stool for C. difficile if patient has a loose stool. Then we will be able to safely give Imodium to the patient. Patient Status: Patient had resting nuclear images this a.m. and these were negative. Therefore, patient will be discharged home Exam Vital Signs (Last) Date Time Temp Pulse Resp B/P Pulse Ox O2 Delivery O2 Flow Rate FiO2 09/18/16 11:19 84 09/18/16 11:10 36.5 18 123/75 98 Room Air Exam General: The patient is comfortable in a bedside chair. HEENT: Head is atraumatic normocephalic. Eyes: Pupils are equally round and reactive to light and accommodation. Extraocular muscles are intact. Sclera are white anicteric. Subconjunctival mucosa is pink. Ears and nose are unremarkable. Oropharynx: There is no mucosal lesions, there is no thrush, there is no pharyngitis. Neck: Is supple, there are no nodes, or masses or tenderness. Chest: Is clear to auscultation and percussion. There are no rales, rhonchi, wheezes or rubs. Heart: Rate, rhythm is regular. There is no murmur, rub or gallop. Chest wall is quite tender to palpation just left of the sternal midline. Abdomen: Good bowel sounds are present. Abdomen is soft, nontender, no organomegaly or masses were appreciated. Extremities: Are symmetrical and well perfused. There is no edema, there is no cellulitis, no rash. Neurologic: There are no focal neurological deficits. Cranial nerves II through XII are intact. There are no sensory or motor deficits. Psychiatric: Patients mood is calm and shows no sign of agitation. She is somewhat tearful when she could go home this evening. Genital: Deferred Rectal: Deferred Test 09/16/16 18:34 09/16/16 19:01 09/17/16 00:21 09/17/16 08:05 D-Dimer < 0.5mg/L (<0.50) Lipase 28U/L (13-60) Urine Color Yellow (YELLOW) Urine Appearance Clear (CLEAR,HAZY) Urine pH 6.0 (5.0-8.0) Urine Specific [place] 1.020 (1.003-1.035) Urine Protein Negativemg/dL (NEG,TRACE) Urine Glucose (UA) Negativemg/dL (NEGATIVE) Urine Ketones Negativemg/dL (NEGATIVE) Urine Occult Blood Negative (NEGATIVE) Urine Nitrite Positive (NEGATIVE) Urine Bilirubin Negative (NEGATIVE) Urine Urobilinogen Normalmg/dL (NORMAL) Urine Leukocyte Esterase Negative (NEGATIVE) Urine RBC 0-2/hpf (0-2) Urine WBC 11-50/hpf (0-5) Urine Epithelial Cells Occasional/hpf (NONE-MOD) Urine Crystals None seen (NONE SEEN) Urine Bacteria Many/hpf (NONE-FEW) Urine Hyaline Casts None/lpf (NONE) Urine Granular Casts None seen (NONE SEEN) Urine Waxy Casts None seen (NONE SEEN) Urine Red Blood Cell Casts None seen (NONE SEEN) Urine White Blood Cell Casts None seen (NONE SEEN) Urine Mucus None seen (None Seen) Urine Trichomonas None seen (NONE SEEN) Urine Yeast None (NONE SEEN) Urine Culture Reflexed Indicated Troponin T < 0.010ug/L (0.0-0.011) Test 09/18/16 06:08 White Blood Count 6.7th/mm3 (3.8-10.1) Red Blood Count 4.58mil/mm3 (3.90-5.20) Hemoglobin 14.3g/dL (12.0-15.6) Hematocrit 43.5% (35.0-46.0) Mean Corpuscular Volume 95.0fL (81-100) Mean Corpuscular Hemoglobin 31.2pg (27.0-35.0) Mean Corpuscular Hemoglobin Concent 32.9% (32.0-37.0) Red Cell Distribution Width 13.1% (12.3-15.4) Platelet Count 354bil/L (150-400) Neutrophils (%) (Auto) 62.0% (40-74) Lymphocytes (%) (Auto) 22.0% (14-46) Monocytes (%) (Auto) 10.7% (4-12) Eosinophils (%) (Auto) 4.7% (0-5) Basophils (%) (Auto) 0.3% (0-3) Erythrocyte Sedimentation Rate 18mm/hr (0-40) Sodium Level 141mEq/L (134-144) Potassium Level 4.4mEq/L (3.5-5.2) Chloride Level 103mEq/L (97-108) Carbon Dioxide Level 24mmol/L (18-29) Blood Urea Nitrogen 14mg/dL (8-27) Creatinine 0.60mg/dL (0.57-1.00) Estimat Glomerular Filtration Rate 137mL/min (>59) Glucose Level 98mg/dL (60-99) Calcium Level 10.0mg/dL (8.5-10.1) Phosphorus Level 4.3mg/dL (2.5-4.9) Magnesium Level 2.0mg/dL (1.6-2.6) Total Bilirubin 0.4mg/dL (0.0-1.2) Aspartate Amino Transf (AST/SGOT) 15U/L (0-50) Alanine Aminotransferase (ALT/SGPT) 8U/L (0-32) Alkaline Phosphatase 74U/L (25-165) C-Reactive Protein 0.9mg/dL (0.0-0.5) Total Protein 7.1g/dL (6.4-8.4) Albumin 4.1g/dL (3.4-5.0) Procalcitonin 0.05ng/mL (See Comment) Discharge Medications Discharge Medications Albuterol/Ipratropium (Combivent Respimat Inhal [place]) 120 Spr/4 Gm Inhaler 1 PUFF IH QID (Reported) Amlodipine (Amlodipine) 10 Mg Tablet 10 MG PO DAILY (Reported) Buspirone (Buspirone) 10 Mg Tablet 5 MG PO BID (Reported) Cefdinir (Cefdinir) 300 Mg Capsule 300 MG PO BID Prescribed by: MARTY NAVARRETE MD Cholestyramine (Cholestyramine Packet) 4 Gm Packet 4 GM PO DAILY (Reported) L.acidoph & Paracasei,B.lactis (Probiotic) 10 Billion Cell Capsule 1 EACH PO DAILY (Reported) Mirtazapine (Mirtazapine) 15 Mg Tablet 15 MG PO HS (Reported) Omeprazole (Omeprazole) 20 Mg Capsule.dr 20 MG PO DAILY (Reported) As needed Hyoscyamine Sulfate (Hyosyne) 0.125 Mg/1 Ml Drops 5 ML PO Q4H PRN PRN For GI Cramps (Reported) Ibuprofen (Ibuprofen) 400 Mg Tablet 400 MG PO QID PRN PRN For Pain Prescribed by: MARTY NAVARRETE MD Lorazepam (Lorazepam) 0.5 Mg Tablet 0.5 MG PO BID PRN PRN For Anxiety (Reported ) Ondansetron (Ondansetron) 4 Mg Tablet 4 MG PO TID PRN PRN For Nausea (Reported) oxyCODONE-Acetaminophen 5-325 mg (oxyCODONE-Acetaminophen 5-325 mg) 1 Each Tablet 2 TAB PO TID PRN PRN For Pain (Reported) Miscellaneous Medications Methylcellulose (with Sugar) (Fiber Therapy Powder) 454 Gm Powder 500 GM PO ( Reported) Followup Plan Disposition: Patient was being discharged home with her . Discharge Diet: Heart Healthy Discharge Activity: No restrictions (May resume usual activity gradually as tolerated) Follow-up with PCP in: 2 weeks Time spent Time spent on discharging this patient was greater than 35 minutes, over half of which was involved in counseling and coordination of care. Rodriguez Navarrete MD Sep 19, 2016 00:33
[2016-09-19] MEDS ORDERED: cefTRIAXone Inj 2,000 MG in Dextrose 5% Minibag Plus 50 ML IV SCH (08:30)
== END 2016-09-18 15:34 | disposition home or self-care (01) ==
LOC: SED 17:46 → MPC 21:28
PROVIDERS: ADMIT Hospitalist; ATTEND Hospitalist
DX: M94.0 Chondrocostal junction syndrome [Tietze] (principal); R07.9 Chest pain, unspecified; I10 Essential (primary) hypertension; K21.9 Gastro-esophageal reflux disease without esophagitis; M79.7 Fibromyalgia; F41.8 Other specified anxiety disorders; N39.0 Urinary tract infection, site not specified; R19.7 Diarrhea, unspecified; Z86.73 Personal history of transient ischemic attack (TIA), and cerebral infarction without residual deficits; J43.9 Emphysema, unspecified; G30.9 Alzheimer's disease, unspecified; F02.80 Dementia in other diseases classified elsewhere, unspecified severity, without behavioral disturbance, psychotic disturbance, mood disturbance, and anxiety; M19.90 Unspecified osteoarthritis, unspecified site; Z79.51 Long term (current) use of inhaled steroids; Z66 Do not resuscitate
CPT/HCPCS: 36415; 71010; 78452; 80053; 81000; 82308; 83690; 83735; 84100; 84484; 85025; 85379; 85651; 86140; 87086; 87088; 87186; 87507; 93005; 93017; 96365; 96366; 96375; 96376; 99285; A9502; G0378; J0280; J0696; J1170; J1644; J1885; J2785; J3010; J7050

== ENCOUNTER 2017-02-16 13:09 | Emergency (ER) | payer MEDICARE ==
[~2017-02-16] VITALS: Ht 170.2 cm; Wt 68.2 kg
[~2017-02-16 13:09] MED LIST changes: -ASPI81TA3 PO; -ATOR20TA65 PO; +CEFD300C3 PO; -CYCL10TA9 PO; -DULO30CA50 PO; +IBUP400T22 PO; +IPRA4AER IH; +METH454P2 PO; -NITR100 PO; +OMEP20CA11 PO; -POLY17PO6 PO; -PREG150C PO; +QUE9 PO
[2017-02-16 13:14] VITALS: BP 155/83; PULSE 94; RESP 10; O2SAT 98
--- NOTE | 2017-02-16 13:37 | ED.REPORT ---
HPI-Chest Pain 40 and Over Date of Service Feb 16, 2017 ED Provider: Dhaval Cam MD 81 y/o female with a hx of fibromyalgia, hypertension, TIA and pneumonia, presents to the ED complaining of pain in the left side of her head, onset 4 days ago. She admits it feels like a tingling feeling that waxes and wanes. Her pain in most pronounced in the upper left forehead and cheek. There is no pain in the left eye or on the nose. She denies any injury on to the left head, cough , chills, nausea, and vomiting. The pt was diagnosed with costochondritis and has been taking pain medications. However, current sx are new and not resolved with the pain medications. The pt has not had a shingles shot. Nursing Notes Stated Complaint: CHEST PAIN Chief Complaint: Chest Pain-Non Cardiac Nature Nursing Notes Reviewed: Yes Allergies: Coded Allergies: No Known Allergies (Unverified , 03/18/16) Scheduled Acyclovir (Acyclovir) 800 Mg Tab 800 MG PO 5XD Albuterol/Ipratropium (Combivent Respimat Inhal [place]) 120 Spr/4 Gm Inhaler 1 PUFF IH QID Amlodipine (Amlodipine) 10 Mg Tablet 10 MG PO DAILY Buspirone (Buspirone) 10 Mg Tablet 5 MG PO BID Cefdinir (Cefdinir) 300 Mg Capsule 300 MG PO BID Cholestyramine (Cholestyramine Packet) 4 Gm Packet 4 GM PO DAILY L.acidoph & Paracasei,B.lactis (Probiotic) 10 Billion Cell Capsule 1 EACH PO DAILY Mirtazapine (Mirtazapine) 15 Mg Tablet 15 MG PO HS Omeprazole (Omeprazole) 20 Mg Capsule.dr 20 MG PO DAILY Prednisone (PredniSONE) 20 Mg Tablet 20 MG PO DAILY Scheduled PRN Hyoscyamine Sulfate (Hyosyne) 0.125 Mg/1 Ml Drops 5 ML PO Q4H PRN PRN For GI Cramps Ibuprofen (Ibuprofen) 400 Mg Tablet 400 MG PO QID PRN PRN For Pain Lorazepam (Lorazepam) 0.5 Mg Tablet 0.5 MG PO BID PRN PRN For Anxiety Ondansetron (Ondansetron) 4 Mg Tablet 4 MG PO TID PRN PRN For Nausea oxyCODONE-Acetaminophen 5-325 mg (oxyCODONE-Acetaminophen 5-325 mg) 1 Each Tablet 2 TAB PO TID PRN PRN For Pain Miscellaneous Medications Methylcellulose (with Sugar) (Fiber Therapy Powder) 454 Gm Powder 500 GM PO General Time Seen by MD: 13:35 Chief Complaint Other (Left side forehead and cheek pain) Hx Obtained From: Patient Arrived By: Walk-in Sudden in Onset?: Yes Onset Occurred: 4 days ago Symptom Duration: Waxes and wanes Quality: Sharp Radiation: : Does not radiate Migration/Movement: Reports: None Severity: Current: Mild Severity: Maximum: Mild Recent Healthcare: No recent doctor visit Similar Sx Previous: No Past Medical History Past Medical History Notes: Dr. Wen, PCP, in [place] Past Medical History Fibromyalgia On chronic narcotics Dementia Alzheimer's emphysema heartburn Arthritis pneumonia Reports: GERD, Hypertension, Transient ischemic attack Past Surgical History "Punctured bile duct" abscess requiring second surgery 30 years prior right knee replacement left shoulder replacement right shoulder repair Reports: Appendectomy, Cholecystectomy Smoking History Never Smoker Social History Alcohol Use: "Social" Drug Use: Denies drug use Other Social History: Good social support, , Local resident Ambulatory Status Independent Review of Systems Reports: Pain in left forehead and cheek Denies: Left eye pain. Constitutional: Denies: Chills Respiratory: Denies: Non-productive cough GI: Denies: Nausea, Vomiting Complete sys rev & neg: except as marked. Physical Exam Initial Vital Signs Vital Signs (First) Date Time Temp Pulse Resp B/P Pulse Ox O2 Delivery O2 Flow Rate FiO2 02/16/17 13:14 35.8 94 10 155/83 98 Room Air Initial VS: Reviewed Head / Eyes: Atraumatic, Normocephalic Neck: Supple, Non-tender, Full range of motion Extremities: Vascular intact, Neuro intact, No swelling, No tenderness Skin: Warm, Dry, No cyanosis Neurologic: Alert, Oriented, Nonfocal General/Constitutional: Awake, Well appearing, Cooperative Alertness: Positive: Confused (dementia) Respiratory / Chest: Atraumatic, Breath sounds NL, No respiratory distress, No wheezing Cardiovascular: Heart rate NL, Regular rhythm, Peripheral circulation NL Abdomen: Atraumatic, Soft Interpretation & Diagnostics ECG Interpretation ECG Interpretation: Normal sinus rhtyhm. Rate 83. Prolonged QT interval. Time: 13:28 Interpreted by: ED physician Re-Eval/Medical Decision Source of Hx: Old records Time of Eval: 14:40 Re-Evaluation/Progress Note: Rechecked pt. Discussed diagnosis and plan to discharge. Pt understands and agrees with the plan. F/U instructions and RTER warning given. All questions addressed. Counseled Regarding: Diagnosis, Need for follow-up, When/why to return to ED Discharge & Departure Primary Impression: Trigeminal neuralgia of left side of face Disposition: Home Discharge Condition All VS Reviewed: Yes Condition: Stable Patient Instructions: Trigeminal Neuralgia (ED) Additional Instructions: The diagnosis is not entirely clear at this time. I do not suspect stroke or major systemic infection. I believe that your symptoms are most consistent with the prodrome of shingles and I would characterize it at this time as trigeminal neuralgia. This means that your pain is coming from the peripheral nerves themselves and I recommend treatment with acyclovir and prednisone and close follow-up on Sunday. Referrals: OTHER,PHYSICIAN (PCP) Scribe Attestation Portions of this note were transcribed by Angela Almaguer. I, , personally performed the history, physical exam and medical decision- making;I reviewed and confirmed the accuracy of the information in the transcribed note. Signed by Nikos Molina. 02/16/17 14:47 Dhaval Cam MD Feb 16, 2017 13:37 Angela Almaguer Feb 16, 2017 14:06
[2017-02-16] MEDS ORDERED: ZOV800 PO (14:50)
[2017-02-16] MEDS ORDERED: PRE20 PO (14:50)
[2017-02-16 14:58] VITALS: BP 150/80; PULSE 85; RESP 20; O2SAT 96
== END 2017-02-16 15:00 | disposition home or self-care (01) ==
LOC: SED 13:09
DX: G50.0 Trigeminal neuralgia (principal); I10 Essential (primary) hypertension; K21.9 Gastro-esophageal reflux disease without esophagitis; M79.7 Fibromyalgia; G30.9 Alzheimer's disease, unspecified; F02.80 Dementia in other diseases classified elsewhere, unspecified severity, without behavioral disturbance, psychotic disturbance, mood disturbance, and anxiety; Z86.73 Personal history of transient ischemic attack (TIA), and cerebral infarction without residual deficits
CPT/HCPCS: 93005; 99284; G0463

== ENCOUNTER 2017-03-10 12:40 | Emergency (ER) | payer MEDICARE ==
[~2017-03-10] VITALS: Ht 172.7 cm; Wt 68.2 kg
[~2017-03-10 12:40] MED LIST changes: +PRE20 PO; +ZOV800 PO
[2017-03-10 12:44] VITALS: BP 155/81; PULSE 87; RESP 14; O2SAT 100
--- NOTE | 2017-03-10 12:51 | ED.REPORT ---
HPI-Neurologic Deficit Date of Service Mar 10, 2017 ED Provider: The patient is an 81 year old female with history of hypertension, GERD, fibromyalgia on chronic narcotics, TIA, pneumonia, and dementia, who was brought to the emergency department by her for right upper extremity pain. She has no complaints of stroke symptoms or deficits. At 1030 this morning the patient suddenly developed right upper extremity pain that radiates into her neck and face. She also complains of chest pain. She has been seen here quite a bit for chest pain and has recently had a full cardiac workup that was negative. The patient is unsure if her pain is similar to previous episodes of chest pain. She denies numbness, weakness, problem walking, speech changes, confusion, headache, shortness of breath, cough, fever or chills. Nursing Notes Stated Complaint: POSS STROKE Chief Complaint: General Complaint Nursing Notes Reviewed: Yes Allergies: Coded Allergies: No Known Allergies (Unverified , 03/18/16) Scheduled Acyclovir (Acyclovir) 800 Mg Tab 800 MG PO 5XD Albuterol/Ipratropium (Combivent Respimat Inhal [place]) 120 Spr/4 Gm Inhaler 1 PUFF IH QID Amlodipine (Amlodipine) 10 Mg Tablet 10 MG PO DAILY Buspirone (Buspirone) 10 Mg Tablet 5 MG PO BID Cefdinir (Cefdinir) 300 Mg Capsule 300 MG PO BID Cholestyramine (Cholestyramine Packet) 4 Gm Packet 4 GM PO DAILY L.acidoph & Paracasei,B.lactis (Probiotic) 10 Billion Cell Capsule 1 EACH PO DAILY Mirtazapine (Mirtazapine) 15 Mg Tablet 15 MG PO HS Omeprazole (Omeprazole) 20 Mg Capsule.dr 20 MG PO DAILY Prednisone (PredniSONE) 20 Mg Tablet 20 MG PO DAILY Scheduled PRN Hyoscyamine Sulfate (Hyosyne) 0.125 Mg/1 Ml Drops 5 ML PO Q4H PRN PRN For GI Cramps Ibuprofen (Ibuprofen) 400 Mg Tablet 400 MG PO QID PRN PRN For Pain Lorazepam (Lorazepam) 0.5 Mg Tablet 0.5 MG PO BID PRN PRN For Anxiety Ondansetron (Ondansetron) 4 Mg Tablet 4 MG PO TID PRN PRN For Nausea oxyCODONE-Acetaminophen 5-325 mg (oxyCODONE-Acetaminophen 5-325 mg) 1 Each Tablet 2 TAB PO TID PRN PRN For Pain Miscellaneous Medications Methylcellulose (with Sugar) (Fiber Therapy Powder) 454 Gm Powder 500 GM PO General Time Seen by Provider: 12:50 Chief Complaint Other (arm pain) Hx Obtained From: Patient, Spouse Arrived By: Walk-in Sudden in Onset?: Yes Onset Occurred: 1 - 4 hours ago Symptom Duration: Since onset Progression Since Onset: Constant Location: : Arm right Quality: Painful Severity: Current: Moderate Severity: Maximum: Severe Associated with: Reports: Chest pain Pertinent Negative: Pt denies other symptoms Recent Healthcare: Recent doctor visit, Recent hospitalization Similar Sx Previous: No Past Medical History Past Medical History Notes: Dr. Wen, PCP, in [place] Past Medical History Fibromyalgia On chronic narcotics Dementia Alzheimer's emphysema Arthritis pneumonia Reports: GERD, Hypertension, Transient ischemic attack Past Surgical History "Punctured bile duct" abscess requiring second surgery 30 years prior right knee replacement left shoulder replacement right shoulder repair Reports: Appendectomy, Cholecystectomy Family History Noncontributory Smoking History Never Smoker Social History Alcohol Use: "Social" Drug Use: Denies drug use Other Social History: Good social support, , Local resident Ambulatory Status Independent Review of Systems Review of Systems Note: +facial pain Constitutional: Denies: Chills, Fever Respiratory: Denies: Non-productive cough, Shortness of breath Cardiovascular: Reports: Chest pain Musculoskeletal: Reports: Extremity pain, Neck pain Neurologic: Denies: Confusion, Focal weakness, Numbness, Problem walking, Weakness Complete sys rev & neg: except as marked. Physical Exam Initial Vital Signs Vital Signs (First) Date Time Temp Pulse Resp B/P Pulse Ox O2 Delivery O2 Flow Rate FiO2 03/10/17 12:44 36.6 87 14 155/81 100 Room Air Initial VS: Reviewed ENT: Mucous membranes moist, Conjunctiva normal, No scleral icterus Neck: Supple, Non-tender, Full range of motion Abdomen / GI: Soft, Non-tender, No guarding, No rebound, No distention Lymphatic: No lymphadenopathy Extremities: Vascular intact, Neuro intact, No swelling, No tenderness Skin: Warm, Dry, No cyanosis Psychiatric: Mood/affect normal, Behavior normal, Normal thought content General/Constitutional: Awake, Alert, Cooperative Head / Eyes: Normocephalic, PERRL, EOMI, No nystagmus Respiratory / Chest: Breath sounds NL, Breath sounds = bilat, No respiratory distress Right chest wall tenderness Cardiovascular: Heart rate NL, Regular rhythm, Heart sounds NL, No gallop, No murmurs, No rubs, Peripheral circulation NL Neurologic: Oriented X3, Speech NL, No motor deficits, No sensory deficits, CN II - XII intact, Cerebellar NL, Memory NL Interpretation & Diagnostics Lab Results Interpretation Result Diagram: 03/10/17 1310 03/10/17 1310 Test 03/10/17 13:10 03/10/17 15:08 03/10/17 15:21 White Blood Count 5.7th/mm3 (3.8-10.1) Red Blood Count 4.33mil/mm3 (3.90-5.20) Hemoglobin 13.5g/dL (12.0-15.6) Hematocrit 42.5% (35.0-46.0) Mean Corpuscular Volume 98.2fL (81-100) Mean Corpuscular Hemoglobin 31.2pg (27.0-35.0) Mean Corpuscular Hemoglobin Concent 31.8% (32.0-37.0) Red Cell Distribution Width 12.6% (12.3-15.4) Platelet Count 335bil/L (150-400) Neutrophils (%) (Auto) 51.2% (40-74) Lymphocytes (%) (Auto) 32.6% (14-46) Monocytes (%) (Auto) 12.0% (4-12) Eosinophils (%) (Auto) 3.8% (0-5) Basophils (%) (Auto) 0.2% (0-3) D-Dimer < 0.50mg/L FEU (<0.50) Sodium Level 140mEq/L (134-144) Potassium Level 4.4mEq/L (3.5-5.2) Chloride Level 103mEq/L (97-108) Carbon Dioxide Level 21mmol/L (18-29) Blood Urea Nitrogen 16mg/dL (8-27) Creatinine 0.74mg/dL (0.57-1.00) Estimat Glomerular Filtration Rate 108mL/min (>59) Glucose Level 113mg/dL (60-99) Calcium Level 9.4mg/dL (8.5-10.1) Magnesium Level 1.9mg/dL (1.6-2.6) Total Bilirubin 0.2mg/dL (0.0-1.2) Aspartate Amino Transf (AST/SGOT) 18U/L (0-50) Alanine Aminotransferase (ALT/SGPT) 9U/L (0-32) Alkaline Phosphatase 63U/L (25-165) Pro-B-Type Natriuretic Peptide 195.2pg/mL (0-738) Total Protein 6.9g/dL (6.4-8.4) Albumin 4.1g/dL (3.4-5.0) Hold Baxter Top Tube Received (Received) Troponin T < 0.010ug/L (0.0-0.011) Hold Urine Received (Received) ECG Interpretation ECG Interpretation: Normal sinus rhythm Unchanged from prior Time: 13:07 Interpreted by: ED physician ECG Interpretation: Normal sinus rhythm with a rate of 75 Unchanged Time: 14:13 Interpreted by: ED physician X-Ray Chest Interpretation Chest Xray Interpretation: IMPRESSION: No acute cardiopulmonary findings. Dictated by: Marsha Johnson M.D. on 03/10/2017 at 13:20 Interpretation / Wet Read by: Interpret - Radiologist Re-Eval/Medical Decision Med Decision/Clinical Course 's concern was for a stroke however the patient has actually no signs or symptoms of stroke and she denies any focal numbness weakness, visual changes or other signs of stroke. Her right chest wall is tender, serial EKGs and troponins are unchanged and old records are reviewed which show a recently normal pharmacologic stress test within one year. Patient is feeling better, she will be discharged. Return and follow-up precautions given. Source of Hx: Old records, Family Re-Evaluation/Progress #1: Time of Eval: 14:10 Re-Evaluation/Progress Note: Rechecked the patient. She is feeling much better. Re-Evaluation/Progress #2: Time of Eval: 16:09 Re-Evaluation/Progress Note: Rechecked the patient. Her symptoms have resolved. Discussed results, diagnosis, and plan for discharge. All questions were addressed. Counseled Regarding: Diagnosis, Lab results, Need for follow-up, When/why to return to ED Discharge & Departure Impression: Primary Impression: Chest pain Chest pain type: unspecified Qualified Code: R07.9 - Chest pain, unspecified Disposition: Home Discharge Condition All VS Reviewed: Yes Condition: Stable Patient Instructions: Chest Pain (ED) Additional Instructions: Thank you for entrusting us with your care today. Your workup today is reassuring. There is no evidence of anything acutely dangerous. Followup with your regular doctor next week for re-evaluation. Return to the emergency department for any new or concerning symptoms. Referrals: OTHER,PHYSICIAN (PCP) Scribe Attestation Portions of this note were transcribed by Morelia Armstrong. I, Dr. Lopez personally performed the history, physical exam and medical decision-making; I reviewed and confirmed the accuracy of the information in the transcribed note. Signed by: Nikos Mcgill, 03/10/2017 at 1615. Joni Lopez DO Mar 10, 2017 12:51 Morelia Armstrong Mar 10, 2017 12:59
[2017-03-10] MEDS ORDERED: Ondansetron 2 mg/mL 2 mL Inj IVPUSH ONE (13:00)
--- NOTE | 2017-03-10 13:24 | DRSVH ---
PROCEDURE: X-RAY CHEST ONE VIEW, PORTABLE ([id number]) INDICATIONS: chest pain TECHNIQUE: One view of the chest was acquired. COMPARISON: None. FINDINGS: Surgical changes and devices: None. Lungs and pleura: No pleural effusions or pneumothorax. Lungs are clear. Mediastinum: Mediastinal contours appear normal. Heart size is normal. The thoracic aorta is calci fied. Bones and chest wall: No suspicious bony lesions. Overlying soft tissues appear unremarkable. IMPRESSION: No acute cardiopulmonary findings. Dictated by: Marsha Johnson M.D. on 03/10/2017 at 13:20 Approved by: Marsha Johnson M.D. on 03/10/2017 at 13:23
[2017-03-10 13:39] LABS: BASOPHILS % (AUTO) 0.2 % (0-3); EOSINOPHILS % (AUTO) 3.8 % (0-5); Mean Corpuscular Hemoglobin 31.2 pg (27.0-35.0); Mean Corpuscular Volume 98.2 fL (81-100); NEUTROPHILS % (AUTO) 51.2 % (40-74); Platelet Count 335 bil/L (150-400)
[2017-03-10 13:49] VITALS: BP 134/67; PULSE 86; RESP 14; O2SAT 99
[2017-03-10 13:58] LABS: TROPONIN T < 0.010 ug/L (0.0-0.011)
[2017-03-10 14:07] LABS: Magnesium 1.9 mg/dL (1.6-2.6)
[2017-03-10 16:11] VITALS: BP 123/61; PULSE 75; RESP 20; O2SAT 96
[2017-03-10 16:20] VITALS: BP 123/61; PULSE 75; RESP 20; O2SAT 96
== END 2017-03-10 16:20 | disposition home or self-care (01) ==
LOC: SED 12:40
DX: R07.89 Other chest pain (principal); M54.2 Cervicalgia; M79.601 Pain in right arm; I10 Essential (primary) hypertension; K21.9 Gastro-esophageal reflux disease without esophagitis; M79.7 Fibromyalgia; F02.80 Dementia in other diseases classified elsewhere, unspecified severity, without behavioral disturbance, psychotic disturbance, mood disturbance, and anxiety; G30.9 Alzheimer's disease, unspecified; Z86.73 Personal history of transient ischemic attack (TIA), and cerebral infarction without residual deficits
CPT/HCPCS: 36415; 71010; 80053; 82948; 83735; 83880; 84484; 85025; 85378; 93005; 96374; 96375; 99285; J2270; J2405